=== PATIENT | male | born 1940 | race Caucasian/White ===

== ENCOUNTER 2018-03-14 14:10 | Inpatient (IN) | payer OTHER ==
[2018-03-14] VITALS (8 sets, daily range): BP systolic 88–117; BP diastolic 47–59
[~2018-03-14] VITALS: Ht 182.9 cm; Wt 104.8 kg
[2018-03-14 14:52] LABS: ABSOLUTE BASOPHILS 0.1 thou/uL (0.0-0.2); ABSOLUTE EOSINOPHILS 0.2 thou/uL (0.0-0.7); ABSOLUTE LYMPHOCYTES 3.2 thou/uL (0.8-5.3); ABSOLUTE MONOCYTES 1.2 thou/uL (0.0-1.2); BASOPHILS 0.7 %; EOSINOPHILS 1.3 %; HEMATOCRIT 35.5 % (42.0-52.0); HEMOGLOBIN 11.9 gm/dL (14.0-18.0); LYMPHOCYTES 20.6 %; MCH 31.2 pg (26.0-34.0); MCHC 33.4 g/dL (28.0-37.0); MCV 93.4 fL (80.0-100.0); MONOCYTES 7.5 %; MPV 8.5 fl. (7.2-11.1); NUCLEATED RBCS 0 /100WBC; PLATELET COUNT* 233 thou/uL (150-400); POLYS 69.9 %; RBC 3.81 mil/uL (4.50-6.00); RDW-CV 14.9 % (10.5-14.5); WBC 15.7 thou/uL (4.0-11.0)
[2018-03-14 15:02] LABS: ANION GAP 12 mmol/L (7-16); APTT 23.3 Seconds (25.0-31.3); BUN 18 mg/dL (7-18); CALCIUM 8.6 mg/dL (8.5-10.1); CHLORIDE 106 mmol/L (98-107); CO2 26 mmol/L (21-32); CREATININE 1.6 mg/dL (0.6-1.3); GLUCOSE 202 mg/dL (70-99); INR 1.1; POTASSIUM 3.7 mmol/L (3.5-5.1); PROTIME 10.4 Seconds (9.20-11.50); SODIUM 144 mmol/L (136-145)
[2018-03-14 15:09] LABS: ALBUMIN 2.8 g/dL (3.4-5.0); ALKALINE PHOSPHATASE 90 U/L (46-116); LIPASE 114 U/L (73-393); SGOT 51 U/L (15-37); SGPT 52 U/L (30-65); TOTAL BILIRUBIN 0.5 mg/dL (<0.1-1.0); TOTAL PROTEIN 5.9 g/dL (6.4-8.2); TROPONIN-I LEVEL <0.06 ng/mL (<0.06)
[2018-03-14 22:14] LABS: URINE BILIRUBIN NEGATIVE (Negative); URINE BLOOD NEGATIVE (Negative); URINE CLARITY CLEAR; URINE COLOR YELLOW; URINE GLUCOSE-RANDOM NEGATIVE (Negative); URINE KETONES NEGATIVE (Negative); URINE LEUKOCYTES-REFLEX NEGATIVE (Negative); URINE NITRITE-REFLEX NEGATIVE (Negative); URINE PROTEIN NEGATIVE (Negative); URINE SPECIFIC GRAVITY <= 1.005 (1.005-1.030); URINE UROBILINOGEN 0.2 E.U./dl (0.2-1.0)
[2018-03-15] VITALS (18 sets, daily range): BP systolic 88–128; BP diastolic 50–71
[2018-03-15 04:44] LABS: HEMATOCRIT 25.2 % (42.0-52.0); MCH 31.5 pg (26.0-34.0); MCHC 34.2 g/dL (28.0-37.0); MCV 92.2 fL (80.0-100.0); RBC 2.74 mil/uL (4.50-6.00); RDW-CV 14.8 % (10.5-14.5); WBC 10.7 thou/uL (4.0-11.0)
[2018-03-15 05:15] LABS: HEMOGLOBIN 8.6 gm/dL (14.0-18.0)
[2018-03-15 05:45] LABS: CALCIUM 7.3 mg/dL (8.5-10.1); CREATININE 1.2 mg/dL (0.6-1.3); MAGNESIUM 1.9 mg/dL (1.8-2.4); POTASSIUM 4.2 mmol/L (3.5-5.1)
[2018-03-15] MEDS ORDERED: PROSCAR 5MG TABL5 MG PO (08:35)
[2018-03-15] MEDS ORDERED: FLOMAX0.4 MG PO (08:35)
[2018-03-15] MEDS ORDERED: TRIAMTERENE/HCT1 CA1 PO (08:36)
--- NOTE | 2018-03-15 12:05 | EKG ---
[place] [address] ELECTROCARDIOGRAM REPORT Name: ANGIE CARR Room: [address] IN [facility]#: [id number] Admission: 03/14/18 Attend Phys: Armani Quintanilla, Discharge: 03/17/18 Date of : 42 Report #: [id number] THIS REPORT FOR: //name// [facility] ED Test Date: 2018-03-14 Test Time: 14:22:06 Pat Name: ANGIE CARR Department: Room: Gender: [employer] Machine [employer]er: [place] : 1940 Requested By: Alexander Brown Order Number: [id number] MD: Spencer Rodriguez Measurements Intervals [place] Rate: 86 P: 74 WA: 143 QRS: 46 QRSD: 105 T: 33 QT: 372 QTc: 445 Interpretive Statements Sinus arrhythmia Ventricular premature complex Baseline wander in lead(s) I,III,aVL No previous ECG available for comparison Electronically Signed On 03-15-2018 12:05:35 CDT by Spencer Rodriguez [email or web address] <ELECTRONICALLY SIGNED> By: Abram Rodriguez MD, [facility] 03/15/18 1205 1422 1422 Abram Rodriguez MD, [facility] /EPI
[2018-03-15 18:02] LABS: ABSOLUTE BASOPHILS 0.1 thou/uL (0.0-0.2); ABSOLUTE EOSINOPHILS 0.2 thou/uL (0.0-0.7); ABSOLUTE LYMPHOCYTES 2.1 thou/uL (0.8-5.3); ABSOLUTE MONOCYTES 1.7 thou/uL (0.0-1.2); ABSOLUTE NEUTROPHILS 9.3 thou/uL (1.6-8.1); BASOPHILS 0.4 %; EOSINOPHILS 1.2 %; HEMATOCRIT 25.6 % (42.0-52.0); HEMOGLOBIN 8.7 gm/dL (14.0-18.0); LYMPHOCYTES 15.7 %; MCH 31.6 pg (26.0-34.0); MCHC 34.1 g/dL (28.0-37.0); MCV 92.9 fL (80.0-100.0); MONOCYTES 12.9 %; MPV 8.4 fl. (7.2-11.1); NUCLEATED RBCS 0 /100WBC; PLATELET COUNT* 180 thou/uL (150-400); POLYS 69.8 %; RBC 2.76 mil/uL (4.50-6.00); RDW-CV 15.1 % (10.5-14.5); WBC 13.3 thou/uL (4.0-11.0)
[2018-03-16] VITALS (11 sets, daily range): BP systolic 95–142; BP diastolic 46–87
[2018-03-16 05:12] LABS: HEMATOCRIT 20.7 % (42.0-52.0); HEMOGLOBIN 7.1 gm/dL (14.0-18.0); MCH 31.5 pg (26.0-34.0); MCHC 34.3 g/dL (28.0-37.0); MCV 91.9 fL (80.0-100.0); NUCLEATED RBCS 0 /100WBC; PLATELET COUNT* 116 thou/uL (150-400); RBC 2.25 mil/uL (4.50-6.00); WBC 8.3 thou/uL (4.0-11.0)
[2018-03-16 05:21] LABS: INR 1.1; PROTIME 10.7 Seconds (9.20-11.50)
[2018-03-16 05:31] LABS: ALBUMIN 2.2 g/dL (3.4-5.0); CALCIUM 6.9 mg/dL (8.5-10.1); CREATININE 1.2 mg/dL (0.6-1.3); TOTAL BILIRUBIN 0.4 mg/dL (<0.1-1.0); TOTAL PROTEIN 4.9 g/dL (6.4-8.2)
[2018-03-16 06:21] LABS: ABSOLUTE EOSINOPHILS 0.4 thou/uL (0.0-0.7); ABSOLUTE LYMPHOCYTES 1.6 thou/uL (0.8-5.3); ABSOLUTE MONOCYTES 0.4 thou/uL (0.0-1.2); ABSOLUTE NEUTROPHILS 5.9 thou/uL (1.6-8.1)
[2018-03-16 06:22] LABS: ANISOCYTOSIS 1+; PLATELET ESTIMATE DECREASED
[2018-03-16 12:15] LABS: % SATURATION 17 % (20-39); IRON 40 ug/dL (50-175)
--- NOTE | 2018-03-16 13:59 | 2DMMODE ---
[place] [address] 2 D/M-MODE ECHOCARDIOGRAM Name: ANGIE CARR Room: [address]#: [id number] Admission: 03/14/18 Attend Phys: Armani Gu Discharge: 03/17/18 Date of : 42 Date of Service: 03/16/18 1359 Report #: [id number] THIS REPORT FOR: //name// APPROVED REPORT Study performed: 03/16/2018 09:56:31 EXAM: Comprehensive 2D, Doppler, and color-flow Echocardiogram Patient Location: In-Patient Room #: 002 Status: routine BSA: 2.27 HR: 86 bpm BP: 95/64 mmHg Rhythm: NSR Other Information Study Quality: Good Indications Hypotension 2D Dimensions LVEF(%): 66.56 (>50%) IVSd: 12.89 (7-11mm) LVOT Diam: 26.13 (18-24mm) LVDd: 44.22 mm PWd: 10.31 (7-11mm) Ascending Ao: 40.29 (22-36mm) LVDs: 28.04 (25-40mm) Aortic Root: 42.83 mm Celis's LVEF: 66.56 % Volumes Left Atrial Volume (Systole) LA ESV Index: 26.50 mL/m2 Aortic Valve AoV Peak Owen.: 1.33 m/s AO Peak Gr.: 7.03 mmHg LVOT Max P.33 mmHg AO Mean Gr.: 4.09 mmHg LVOT Mean P.11 mmHg LVOT Max V: 1.04 m/s AO V2 VTI: 26.98 cm LVOT Mean V: 0.67 m/s SONG (VTI): 3.98 cm2 LVOT V1 VTI: 20.01 cm Mitral Valve E/A Ratio: 0.81 [place] [address] 2 D/M-MODE ECHOCARDIOGRAM Name: ANGIE CARR Room: [address]#: [id number] Admission: 03/14/18 Attend Phys: Armani Gu Discharge: 03/17/18 Date of : 42 Date of Service: 03/16/18 1359 Report #: [id number] MV Decel. Time: 174.04 ms MV E Max Owen.: 0.89 m/s MV PHT: 50.47 ms MVA (PHT): 4.36 cm2 TDI E/Lateral E': 6.85 E/Medial E': 6.36 Medial E' Owen.: 0.14 m/s Lateral E' Owen.: 0.13 m/s Pulmonary Valve PV Peak Owen.: 1.05 m/s PV Peak Gr.: 4.45 mmHg Tricuspid Valve TR Peak Gr.: 31.20 mmHg RVSP: 36.00 mmHg Left Ventricle The left ventricle is normal size. There is normal LV segmental wall motion. There is normal left ventricular wall thickness. Left ventricular systolic function is normal. The left ventricular ejection fraction is within the normal range. LVEF is 55-60%. Grade I - abnormal relaxation pattern. Right Ventricle The right ventricle is normal size. The right ventricular systolic function is normal. Atria The left atrium size is normal. The right atrium size is normal. Aortic Valve Mild aortic valve sclerosis. No aortic regurgitation is present. There is no aortic valvular stenosis. Mitral Valve The mitral valve is normal in structure. Trace mitral regurgitation. No evidence of mitral valve stenosis. Tricuspid Valve The tricuspid valve is normal in structure. Trace tricuspid regurgitation. The RVSP is 35-40 mmHg. Pulmonic Valve The pulmonary valve is normal in structure. [place] [address] 2 D/M-MODE ECHOCARDIOGRAM Name: ANGIE CARR Room: [address] IN M.R.#: [id number] Admission: 03/14/18 Attend Phys: Armani Gu Discharge: 03/17/18 Date of : 42 Date of Service: 03/16/18 1359 Report #: [id number] Great Vessels The aortic root is normal in size. IVC is normal in size and collapses with >50% inspiration Pericardium There is no pericardial effusion. <Conclusion> The left ventricle is normal size. There is normal left ventricular wall thickness. Left ventricular systolic function is normal. The left ventricular ejection fraction is within the normal range. LVEF is 55-60%. Grade I - abnormal relaxation pattern. The right ventricle is normal size. The left atrium size is normal. Mild aortic valve sclerosis. No aortic regurgitation is present. There is no aortic valvular stenosis. The mitral valve is normal in structure. Trace mitral regurgitation. The tricuspid valve is normal in structure. Trace tricuspid regurgitation. The RVSP is 35-40 mmHg. IVC is normal in size and collapses with >50% inspiration There is no pericardial effusion. There is normal LV segmental wall motion. <ELECTRONICALLY SIGNED> By: Johnny Hassan MD, FACC 03/16/18 1359 1359 1359 Johnny Hassan MD, FACC /INF
[2018-03-17] VITALS: BP 138/63
[2018-03-17 03:45] VITALS: BP 138/65
[2018-03-17 05:37] LABS: HEMATOCRIT 21.4 % (42.0-52.0); HEMOGLOBIN 7.3 gm/dL (14.0-18.0); MCH 31.6 pg (26.0-34.0); MCV 93.1 fL (80.0-100.0); MPV 8.1 fl. (7.2-11.1); RBC 2.3 mil/uL (4.50-6.00); RDW-CV 14.8 % (10.5-14.5); WBC 8.6 thou/uL (4.0-11.0)
[2018-03-17 05:45] LABS: APTT 25.4 Seconds (25.0-31.3); PROTIME 10.2 Seconds (9.20-11.50)
[2018-03-17 05:46] LABS: ALBUMIN 2.3 g/dL (3.4-5.0); CALCIUM 7.3 mg/dL (8.5-10.1); POTASSIUM 3.8 mmol/L (3.5-5.1); TOTAL BILIRUBIN 0.5 mg/dL (<0.1-1.0); TOTAL PROTEIN 5.3 g/dL (6.4-8.2)
[2018-03-17 06:00] VITALS: BP 124/67
[2018-03-17 08:00] VITALS: BP 122/63
[2018-03-17] MEDS ORDERED: IRON325 PO (10:47)
[2018-03-17 11:55] VITALS: BP 122/63
--- NOTE | 2018-03-20 13:09 | CON ---
[address] [address] CONSULTATION Name: ANGIE CARR [address] [id number] Admission: 03/14/18 Attend Phys: Armani Quintanilla, Discharge: 03/17/18 Date of : 42 Report #: [id number] THIS REPORT FOR: //name// CC: Johnny Quintanilla MD DATE OF SERVICE: 03/15/2018 REQUESTING PHYSICIAN: Armani Quintanilla MD. REASON FOR CONSULT: Anemia and ruptured hepatic hemangioma. SUBJECTIVE: This is a 77-year-old male with history of acute abdominal pain, which happened yesterday. The patient reports that for a week, he was feeling a mass-like sensation in his right abdominal area. He reports that yesterday, he started having severe pain in the left upper quadrant, which was radiating. This prompted him to come to hospital. CT confirmed acute bleeding from a liver lesion, which is suspected to be a 5 x 3 x 4 hemangioma. The patient's hemoglobin has dropped from 11.9 to 8.3. He underwent embolization by Interventional Radiology. The patient reports history of peptic ulcer disease going back to 30 years ago. He also believes that he has not had a colonoscopy for 20 years. He denies any hematochezia or melena. He reports that his abdominal pain has improved since yesterday. He is comfortably sitting in his bed and reading a book. PAST MEDICAL HISTORY: Significant for history of prostate cancer, appendectomy, total hip replacement, hypertension. ALLERGIES: No known drug allergy. MEDICATIONS: Please refer to hospital MAR. SOCIAL HISTORY: The patient denies tobacco or alcohol use. FAMILY HISTORY: Negative for GI malignancy. PHYSICAL EXAMINATION: VITAL SIGNS: Reveals blood pressure of 96/56, respiration 18, pulse 90, temperature 98.4. LUNGS: Clear. CARDIOVASCULAR: Regular. ABDOMEN: Soft, mildly distended, tender to palpation in the epigastric regions. NEUROLOGIC: The patient is alert, [place] x 3[place] [address] CONSULTATION Name: ANGIE CARR Room: [address]#: [id number] Admission: 03/14/18 Attend Phys: Armani Quintanilla, Discharge: 03/17/18 Date of : 42 Report #: [id number] LABORATORY DATA: Reveal sodium of 142, potassium 4.2, BUN is 23, creatinine is 1.2, glucose 114. AST is 51, ALT 52 with alkaline phosphatase of 90 and total bilirubin of 0.5. Lipase is 114. AFP is pending. INR is 1.1. WBC is 10.7 with hemoglobin of 8.6, down from 10.9 and platelet of 158. IMAGING: As discussed above. ASSESSMENT AND PLAN: The patient with what is suspected as a hepatic hemangioma rupture, status post embolization, who is currently doing well. His hemoglobin is 8.6, down from 11.9 on admission. He is hemodynamically stable. I would recommend to repeat CT of abdomen in the next couple of days. We will also consider upper and lower endoscopy as outpatient to further investigate his anemia aside his abdominal hemorrhage. Meanwhile, we will advance diet to as tolerated. <ELECTRONICALLY SIGNED> By: Rell Riggins MD 03/20/18 1309 1104 1304Rell Riggins MD /nt
== END 2018-03-17 11:50 | disposition home or self-care (01) | DRG 270 ==
LOC: M.ERS 14:10 → M.TBA-ER 17:05 → M.ICU 17:05
PROVIDERS: Family Medicine; Internal Medicine; Internal Medicine Gastroenterology; Surgery; ADMIT Family Medicine
PROC: 02HV33Z Insertion of Infusion Device into Superior Vena Cava, Percutaneous Approach (ICD-10-PCS; principal; 2018-03-14)
PROC: 04L33DZ Occlusion of Hepatic Artery with Intraluminal Device, Percutaneous Approach (ICD-10-PCS; 2018-03-14)
DX: D18.09 Hemangioma of other sites (principal); K66.1 Hemoperitoneum; J96.01 Acute respiratory failure with hypoxia; K92.2 Gastrointestinal hemorrhage, unspecified; E87.2 Acidosis; B17.9 Acute viral hepatitis, unspecified; R65.10 Systemic inflammatory response syndrome (SIRS) of non-infectious origin without acute organ dysfunction; R16.0 Hepatomegaly, not elsewhere classified; I10 Essential (primary) hypertension; Z96.649 Presence of unspecified artificial hip joint; N18.9 Chronic kidney disease, unspecified; D72.829 Elevated white blood cell count, unspecified; R73.9 Hyperglycemia, unspecified; D64.9 Anemia, unspecified; I87.2 Venous insufficiency (chronic) (peripheral); Z79.899 Other long term (current) drug therapy; Z90.49 Acquired absence of other specified parts of digestive tract; Z85.46 Personal history of malignant neoplasm of prostate; Z84.89 Family history of other specified conditions; Z90.89 Acquired absence of other organs

== ENCOUNTER → 2019-07-29 | Outpatient (CLI) | payer OTHER ==
[~2019-07-29] MED LIST: FLOMAX0.4 MG PO; IRON325 PO; PROSCAR 5MG TABL5 MG PO; TRIAMTERENE/HCT1 CA1 PO
== END ==
LOC: M.LAB 04:50 → EDSTATUS 17:05 → M.LAB 17:18
DX: E87.6 Hypokalemia (principal)

== ENCOUNTER → 2020-03-17 | Outpatient (CLI) | payer OTHER ==
[~2020-03-17] VITALS: Ht 182.9 cm; Wt 95.3 kg
[~2020-03-17] MED LIST changes: +HYDROCHLOROTH12.5 M1 PO
[2020-03-17 09:29] LABS: HEMATOCRIT 28.8 % (42.0-52.0); HEMOGLOBIN 9.8 gm/dL (14.0-18.0); MCH 29.9 pg (26.0-34.0); MCHC 33.9 g/dL (28.0-37.0); MCV 88.1 fL (80.0-100.0); MPV 8.7 fl. (7.2-11.1); RBC 3.27 mil/uL (4.50-6.00); RDW-CV 14.5 % (10.5-14.5); WBC 6.3 thou/uL (4.0-11.0)
[2020-03-17 09:38] VITALS: BP 109/47
[2020-03-17 09:39] LABS: APTT 26.5 Seconds (25.0-31.3); CALCIUM 8.3 mg/dL (8.5-10.1); CREATININE 1.3 mg/dL (0.6-1.3); POTASSIUM 3.8 mmol/L (3.5-5.1); PROTIME 10.7 Seconds (9.20-11.50)
[2020-03-17 10:44] VITALS: BP 109/47
== END ==
LOC: M.INT 07:50
PROVIDERS: Radiology Diagnostic Radiology
DX: K76.89 Other specified diseases of liver (principal); R94.5 Abnormal results of liver function studies; R16.0 Hepatomegaly, not elsewhere classified; I51.7 Cardiomegaly

== ENCOUNTER → 2020-03-24 | Outpatient (CLI) | payer OTHER ==
[2020-03-24] VITALS (7 sets, daily range): BP systolic 120–142; BP diastolic 54–74
[~2020-03-24] VITALS: Ht 182.9 cm; Wt 97.5 kg
[2020-03-24 09:31] LABS: HEMATOCRIT 29.9 % (42.0-52.0); HEMOGLOBIN 10.1 gm/dL (14.0-18.0); MCH 29.6 pg (26.0-34.0); MCHC 33.8 g/dL (28.0-37.0); MCV 87.7 fL (80.0-100.0); MPV 8.7 fl. (7.2-11.1); RBC 3.4 mil/uL (4.50-6.00); RDW-CV 14.6 % (10.5-14.5); WBC 7.1 thou/uL (4.0-11.0)
[2020-03-24 09:47] LABS: CALCIUM 8.4 mg/dL (8.5-10.1); CREATININE 1.3 mg/dL (0.6-1.3); POTASSIUM 3.8 mmol/L (3.5-5.1)
[2020-03-24 09:49] LABS: APTT 25.9 Seconds (25.0-31.3); PROTIME 10.7 Seconds (9.20-11.50)
[2020-03-24 09:52] LABS: ALBUMIN 2.6 g/dL (3.4-5.0); TOTAL BILIRUBIN 0.7 mg/dL (<0.1-1.0); TOTAL PROTEIN 6.3 g/dL (6.4-8.2)
--- NOTE | 2020-03-29 15:08 | PATH ---
[address] [address] PATHOLOGY RPT PROCEDURE Name: ANGIE CARR Room: [facility] Bar#: [id number] Admission: 03/24/20 Date of : 42 Discharge: Report #: [id number] Path Case #: [id number] [facility] Accession Number: [id number] . 01 Material submitted: . liver - LIVER MASS BIOPSY . 01 Clinical history: . Liver mass 6.4 x 7.7 x 7.4 cm . 02 Diagnosis: Liver, needle biopsy mass: - WELL-DIFFERENTIATED HEPATOCELLULAR CARCINOMA. . (MLK:tie sawyer; 03/28/2020) . The results are discussed with Liyah in Dr. Johnny Molina's office via telephone on 03/28/2020 at approximately 12:10. [facility] 03/29/2020 1357 Local . 02 Comment: The case is seen in co-review with Dr. Adalgisa Parham, who concurs with the above diagnosis. . . . . . 02 Electronically signed: . Zenia Soto MD, Pathologist NPI- [id number] . 01 Gross description: . The specimen is received in formalin, labeled "Angie Osoriorochelle, liver biopsy". Received are multiple core-like fragments of orange-bess, friable tissue ranging in length from 0.3 to 0.8 cm, with each measuring 0.1 cm in diameter. The specimen is submitted entirely in cassette A1 through A3. (CAA; 03/24/2020) QAC/QA 03/24/2020 1544 Local . 02 Microscopic: . A fragmented needle biopsy of the liver is available for review. The typical hepatic architecture is effaced by a proliferation of malignant cells arranged in trabecular structures and pseudoglands. Scattered tumor cells display steatosis, primarily of microvesicular type. Rare hepatocytes demonstrate intracytoplasmic bile. There is marked nuclear anisonucleosis. The reticulin stain shows a markedly diminished reticulin framework. The hepatic plates are greatly in excess of 3 [place] [address] PATHOLOGY RPT PROCEDURE Name: ANGIE CARR [id number] Admission: 03/24/20 Date of : 42 Discharge: Report #: [id number] Path Case #: [id number] thickness. . Special stain result: Reticulin - markedly reduced hepatic reticulin framework. . (MLK:maricel; 03/28/2020) . 02 Pathologist provided ICD-10: C22.0 . 02 CPT . 010274, 594111 Specimen Comment: A courtesy copy of this report has been sent to [phone], [phone] Specimen Comment: [phone], Specimen Comment: Report sent to ,DR MOLINA / DR SAENZ Performed at: [facility] [address] [place] [address] [id number] MD Alli Tierney MD Phone: [phone] Performed at: [address] [id number] MD Arnie Garcia MD Phone: [phone]
== END | disposition home or self-care (01) ==
LOC: M.ULTRA 08:12
PROVIDERS: Radiology Diagnostic Radiology
DX: C22.0 Liver cell carcinoma (principal); K74.60 Unspecified cirrhosis of liver; I51.9 Heart disease, unspecified; Z98.890 Other specified postprocedural states; Z79.899 Other long term (current) drug therapy; Z90.49 Acquired absence of other specified parts of digestive tract; Z98.42 Cataract extraction status, left eye; Z96.642 Presence of left artificial hip joint; Z82.49 Family history of ischemic heart disease and other diseases of the circulatory system